=== PATIENT | female | born 1985 | race African-American/Black ===

== ENCOUNTER 2016-11-05 05:34 | Day surgery (SDC) | payer MEDICAID | END 2016-11-05 18:55 | disposition home or self-care (01) | LOC: D.OPS 05:34 | DX: M67.471 Ganglion, right ankle and foot (principal); I10 Essential (primary) hypertension; E66.01 Morbid (severe) obesity due to excess calories; Z68.41 Body mass index [BMI] 40.0-44.9, adult; Z01.812 Encounter for preprocedural laboratory examination ==